=== PATIENT | male | born 1990 | race Caucasian/White ===

== ENCOUNTER 2020-07-27 12:20 | Emergency (ER) | payer SELFPAY ==
[2020-07-27 12:30] VITALS: BP 159/77; PULSE 56; RESP 18; TEMP 36.9; O2SAT 100; BMI 28.4
--- NOTE | 2020-07-27 13:56 | ED_ITS ---
HPI - Extremity Problem General Chief complaint: Extremity Problem <Mandy Kulkarni NP - Last Filed: 07/27/20 14:09> Stated complaint: b/l hand pain <aMndy Kulkarni NP - Last Filed: 07/27/20 14:09> Time Seen by Provider: 07/27/20 13:17 <Mandy Kulkarni NP - Last Filed: 07/27/20 14:09> Source: patient <Mandy Kulkarni NP - Last Filed: 07/27/20 14:09> Mode of arrival: ambulatory <Mandy Kulkarni NP - Last Filed: 07/27/20 14:09> Limitations: no limitations <Mandy Kulkarni NP - Last Filed: 07/27/20 14:09> History of Present Illness HPI Narrative: 29-year-old male previously healthy who had bilateral hand pain for the last few weeks. The pain is worsened at nighttime. It is often associated with intermittent numbness and tingling. 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 Denies any injury or trauma. Denies any weakness. <Mandy Kulkarni NP - Last Filed: 07/27/20 14:09> MD Complaint: extremity pain <Mandy Kulkarni NP - Last Filed: 07/27/20 14:09> Onset (ago): week(s) <Mandy Kulkarni NP - Last Filed: 07/27/20 14:09> Pain Consistency: intermittent <Mandy Kulkarni NP - Last Filed: 07/27/20 14:09> Location: left and right <Mandy Kulkarni NP - Last Filed: 07/27/20 14:09> Quality: burning and aching <Mandy Kulkarni NP - Last Filed: 07/27/20 14:09> Radiation: distal <Mandy Kulkarni NP - Last Filed: 07/27/20 14:09> Relieving factors: nothing <Mandy Kulkarni NP - Last Filed: 07/27/20 14:09> Exacerbating factors: nothing <Mandy Kulkarni NP - Last Filed: 07/27/20 14:09> Associated symptoms: denies other symptoms <Mandy Kulkarni NP - Last Filed: 07/27/20 14:09> Related Data Home medications: Previous Rx's Medication Instructions Recorded ibuprofen 800 mg PO Q8H PRN #20 tab 07/27/20 <Mandy Kulkarni NP - Last Filed: 07/27/20 14:09> Allergies/Adverse reactions: Allergies Allergy/AdvReac Type Severity Reaction Status Date / Time No Known Allergies Allergy Unverified 04/29/20 17:39 <Mandy Kulkarni NP - Last Filed: 07/27/20 14:09> Review of Systems Review of Systems: Yes all other systems are reviewed and are negative <ESTELA Willingham Last Filed: 07/27/20 14:09> Constitutional: Constitutional: Reports no additional constitutional complaints, Denies body ache(s), Denies chills, Denies fever(s), Denies headache(s) and Denies weakness <Mandy Kulkarni NP - Last Filed: 07/27/20 14:09> Eyes: Eyes: Reports no additional eye complaints and Denies change in vision <Mandy Kulkarni NP - Last Filed: 07/27/20 14:09> ENT: Reports system reviewed and no additional complaints, except as documented, Denies dizziness, Denies headache(s), Denies nasal congestion, Denies nasal discharge and Denies neck pain <ESTELA Willingham Last Filed: 07/27/20 14:09> Cardiovascular: Cardiovascular: Reports no additional cardiovascular complaints, Denies chest pain, Denies leg edema and Denies dyspnea <Mandy Kulkarni NP - Last Filed: 07/27/20 14:09> Respiratory: Respiratory: Reports no additional respiratory complaints, Denies cough and Denies dyspnea <Mandy Kulkarni NP - Last Filed: 07/27/20 14:09> Gastrointestinal: Gastrointestinal: Reports no additional gastrointestinal complaints, Denies abdominal pain, Denies diarrhea, Denies nausea and Denies v omiting <ESTELA Willingham Last Filed: 07/27/20 14:09> Genitourinary: Genitourinary: Denies urinary incontinence <Mandy Kulkarni NP - Last Filed: 07/27/20 14:09> Musculoskeletal: Musculoskeletal: Reports no additional musculoskeletal complaints, Denies back pain, Denies arthralgias, Denies joint swelling, Denies neck pain, Reports numbness and Reports tingling <Mandy Kulkarni NP - Last Filed: 07/27/20 14:09> Integumentary/Breasts: Skin/Breast: Reports system reviewed and no additional complaints, except as docu and Denies rash <Mandy Kulkarni NP - Last Filed: 07/27/20 14:09> Neurologic: Reports system reviewed and no additional complaints, except as documented, Denies Abnormal speech present, Denies dizziness, Denies headache(s), Reports numbness, Reports tingling and Denies weakness <Mandy Kulkarni NP - Last Filed: 07/27/20 14:09> PMFSH Past Medical History Attestation statement: The following information was validated with the patient. <Mandy Kulkarni NP - Last Filed: 07/27/20 14:09> Source: old records reviewed and nursing notes reviewed <Mandy Kulkarni NP - Last Filed: 07/27/20 14:09> Social History Social History: Social History Advance Directives: No Advance Directives Information Provided: No <Mandy Kulkarni NP - Last Filed: 07/27/20 14:09> Physical Exam Vital Signs: Vital Signs: Last Vital Signs Temp 98.5 F 07/27/20 12:30 Pulse 56 07/27/20 12:30 Resp 18 07/27/20 12:30 BP 159/77 H 07/27/20 12:30 Pulse Ox 100 07/27/20 12:30 Body Mass Index 28.4 <Mandy Kulkarni NP - Last Filed: 07/27/20 14:09> Vital Signs: Last Vital Signs Temp 98.5 F 07/27/20 12:30 Pulse 56 07/27/20 12:30 Resp 18 07/27/20 12:30 BP 159/77 H 1215/20 12:30 Pulse Ox 100 07/27/20 12:30 Body Mass Index 28.4 <Nahum Kc MD - Last Filed: 08/08/20 09:20> Const: General: cooperative, healthy appearing, comfortable and no acute distress <Mandy Kulkarni NP - Last Filed: 07/27/20 14:09> Orientation/consciousness: patient oriented x3 <Mandy Kulkarni NP - Last Filed: 07/27/20 14:09> Limitations: no limitations <Mandy Kulkarni NP - Last Filed: 07/27/20 14:09> HENMT: Head: Yes normal to inspection <Mandy Kulkarni NP - Last Filed: 07/27/20 14:09> Ears: hearing grossly normal bilaterally <Mandy Kulkarni NP - Last Filed: 07/27/20 14:09> General nose exam: Normal external nose present <Mandy Kulkarni NP - Last Filed: 07/27/20 14:09> Face and sinus: Yes normal facial exam <Mandy Kulkarni NP - Last Filed: 07/27/20 14:09> Mouth: Normal oral and palatal mucosa present <Mandy Kulkarni NP - Last Filed: 07/27/20 14:09> Throat: Yes posterior oropharynx normal <Mandy Kulkarni NP - Last Filed: 07/27/20 14:09> Eyes: General: appearance normal, both eyes and all related structures <Mandy Kulkarni NP - Last Filed: 07/27/20 14:09> Pupils: Equal, round and reactive pupils present <Mandy Kulkarni NP - Last Filed: 07/27/20 14:09> Neck: Neck: Yes normal visual inspection <Mandy Kulkarni NP - Last Filed: 07/27/20 14:09> Chest: Chest palpation & inspection: normal inspection of the chest <Mandy Kulkarni NP - Last Filed: 07/27/20 14:09> Resp: Effort & Inspection: normal respiratory effort <Mandy Kulkarni NP - Last Filed: 07/27/20 14:09> Auscultation: clear to auscultation bilaterally <Mandy Kulkarni FINANCIAL MANAGEMENT ANALYST - Last Filed: 07/27/20 14:09> Cardio: Rate: regular rate <Mandy Kulkarni FINANCIAL MANAGEMENT ANALYST - Last Filed: 07/27/20 14:09> Rhythm: regular rhythm <Mandy Kulkarni FINANCIAL MANAGEMENT ANALYST - Last Filed: 07/27/20 14:09> Peripheral pulses: Peripheral pulses 2+ throughout <Mandy Kulkarni FINANCIAL MANAGEMENT ANALYST - Last Filed: 07/27/20 14:09> GI: Inspection: Yes normal to inspection <Mandy Kulkarni FINANCIAL MANAGEMENT ANALYST - Last Filed: 07/27/20 14:09> Palpation (GI): Soft to palpation and nontender <Mandy Kulkarni FINANCIAL MANAGEMENT ANALYST - Last Filed: 07/27/20 14:09> Auscultation: normal bowel sounds <Mandy Kulkarni NP - Last Filed: 07/27/20 14:09> Back/Spine/Pelvis: Thoracic/Lumbar Spine: thoracic and lumbar spine normal to inspection <Mandy Kulkarni FINANCIAL MANAGEMENT ANALYST - Last Filed: 07/27/20 14:09> Skin: General skin exam: no rashes or lesions noted <Mandy Kulkarni NP - Last Filed: 07/27/20 14:09> Neuro: General: patient oriented x3, no focal motor deficits and normal sensation to monofilament <Mandy Kulkarni NP - Last Filed: 07/27/20 14:09> Cranial nerves: Yes Equal, round and reactive pupils present <Mandy Kulkarni FINANCIAL MANAGEMENT ANALYST - Last Filed: 07/27/20 14:09> Cognition (Neuro): normal cognition <Mandy Kulkarni FINANCIAL MANAGEMENT ANALYST - Last Filed: 07/27/20 14:09> Speech: No Abnormal speech present <Mandy Kulkarni NP - Last Filed: 07/27/20 14:09> Gait exam (Neuro): Normal gait present <Mandy Kulkarni NP - Last Filed: 07/27/20 14:09> Motor exam (neuro): 5/5 motor strength present throughout <Mandy Kulkarni NP - Last Filed: 07/27/20 14:09> Extrem: Other: Positive Phalen sign. Full range of motion. Neurovascular intact distally. Normal cap refill. <Mandy Kulkarni NP - Last Filed: 07/27/20 14:09> General: Yes normal to inspection <Mandy Kulkarni NP - Last Filed: 07/27/20 14:09> Course Course Course Narrative: Intermittent pain with associated paresthesias worsen at nighttime for the last few weeks. Normal exam. Positive Phalen sign. Consistent with carpal tunnel syndrome. Patient placed in bilateral wrist splints. Recommended wearing at night. Follow up with outpatient Hand surgeon. RICE until then. Reviewed worrisome signs and symptoms of when to return to the emergency department. Comfortable discharge home. <Mandy Kulkarni NP - Last Filed: 07/27/20 14:09> I have reviewed the chart <Nahum Kc MD - Last Filed: 08/08/20 09:20> Discharge Plan Discharge Clinical Impression: Acute carpal tunnel syndrome <Mandy Kulkarni NP - Last Filed: 07/27/20 14:09> Patient Disposition: Home, Self-Care <Mandy Kulkarni NP - Last Filed: 07/27/20 14:09> Instructions: Paresthesia (ED) <Mandy Kulkarni NP - Last Filed: 07/27/20 14:09> Additional Instructions: Wrist splint at night time Take the anti-inflammatory around the clock Once your insurance is established follow-up with the hand surgeon <Mandy Kulkarni NP - Last Filed: 07/27/20 14:09> Prescriptions: New ibuprofen 800 mg tablet 800 mg PO Q8H PRN (Reason: pain) Qty: 20 RF: 0 <Mandy Kulkarni NP - Last Filed: 07/27/20 14:09> Referrals: Miguel Ángel Johnson MD [Physician] - 2 days <Mandy Kulkarni NP - Last Filed: 07/27/20 14:09> Stand Alone Forms: Work/School Release <Mandy Kulkarni NP - Last Filed: 07/27/20 14:09> Interventions: ED Discharge Assessment Last Done: 07/27/20 13:47 <Mandy Kulkarni NP - Last Filed: 07/27/20 14:09> Discharge Date/Time: 07/27/20 13:47 <Mandy Kulkarni NP - Last Filed: 07/27/20 14:09>
== END 2020-07-27 13:47 | disposition home or self-care (01) ==
PROVIDERS: Emergency Provider Emergency Medicine
DX: G56.00 Carpal tunnel syndrome, unspecified upper limb (principal); M79.642 Pain in left hand; M79.641 Pain in right hand; R20.2 Paresthesia of skin
CPT/HCPCS: 99283